=== PATIENT | male | born 1960 | race Caucasian/White ===

== ENCOUNTER 2024-01-24 17:04 | Emergency (ER) | payer OTHER, SELFPAY ==
[2024-01-24 17:17] VITALS: BP 153/84
[2024-01-24 17:49] LABS: % Basophils 0.6 % (0-2); % Immature Granulocytes 0.4 % (0-0.5); % Lymphocytes 21.6 % (20.5-51.1); % Monocytes 7.3 % (1.7-9.3); % Neutrophils 69.1 % (42.2-75.2); Absolute Eosinophils 0.1 10^3/uL (0-0.7); Absolute Lymphocytes 1.5 10^3/uL (1.2-3.4); Absolute Monocytes 0.5 10^3/uL (0.1-0.6); Absolute Neutrophils 4.7 10^3/uL (1.4-6.5); Hematocrit 41.5 % (39.0-52.0); Hemoglobin 14.1 g/dL (13.0-18.0); Mean Corpuscular Hgb 29.6 pg (27.0-31.0); Nucleated Red Blood Cells % 0 % (-); Platelet Count 205 10^3/uL (130-400); Red Blood Cell Count 4.77 10^6/uL (4.70-6.10); Red Cell Dist. Width 13.5 % (11.5-14.5); White Blood Cell Count 6.9 10^3/uL (4.8-10.8)
[2024-01-24 18:01] LABS: ALT (SGPT) 26 U/L (0-50); AST (SGOT) 36 U/L (17-59); Albumin 4.9 g/dl (3.5-5.0); Alkaline Phosphatase 58 U/L (38-126); Blood Urea Nitrogen 13 mg/dl (9-20); Calcium 9.8 mg/dl (8.4-10.2); Carbon Dioxide 25 mmol/L (22-30); Chloride 100 mmol/L (98-107); Glucose 76 mg/dl (70-99); Potassium 4.3 mmol/L (3.5-5.1); Sodium 138 mmol/L (135-145); Total Bilirubin 1.3 mg/dl (0.2-1.3); Total Protein 6.9 g/dl (6.3-8.2); eGFR > 60.00
--- NOTE | 2024-01-24 18:48 | ED.GENMED ---
History of Present Illness
General
Chief Complaint: Anxiety
Source: patient
Exam Limitations: none
Time Seen by Provider: 01/24/24 18:35
Nursing documentation reviewed up to this point in time: agreed with
History of Present Illness
History of Present Illness:
63-year-old male presents to the ER for evaluation. Patient reports he was sitting at home and suddenly' my whole body went numb.' He complains of numbness to his entire face both his arms both of his legs. He felt this he was having difficulty
speaking. He reports' I was afraid I was having a heart attack.' He denied any chest pain or shortness of breath. He denies any upper /lower extremity weakness.
He reports he has no past medical history. He drove himself to the ER.
Past History
Past History
ED Past Medical History: HTN
ED Past Surgical History: None
Social History
Tobacco: Former smoker
Alcohol: None
Personal:
Living: with family
Review of Systems
Review of Systems
Allergies reviewed?: Yes
All Other Systems: ROS reviewed and negative except as documented in HPI and ROS
Constitutional: Reports no symptoms
Respiratory: Denies trouble breathing
Cardiac: Reports no symptoms
ABD/GI: Reports no symptoms
: Reports no symptoms
Musculoskeletal: Reports no symptoms
Skin: Reports no symptoms
Neurological: Reports numbness and other ('numb all over my body ' denies arm/leg weakness denies headache ); Denies dizzy, headache or weakness
Endocrine: Reports no symptoms
Psychiatric: Reports no symptoms
Phy Exam
General Physical Exam
General Presentation: no apparent distress
General age: appears stated age
General Skin: warm and dry
General Habitus: normal
General Mental: anxious
Cardiovascular Exam
Cardiovascular Exam: regular rate/rhythm, no murmur and normal peripheral pulses
Pulmonary Exam
Pulmonary Exam: lungs clear and no respiratory distress
Neurological Exam
Neurological Exam: alert and oriented x3
Musculoskeletal Exam
Musculoskeletal Exam: full ROM and other (Strong bilateral distal pulses in upper and lower extremties)
Skin Exam
Skin Exam: normal color and warm/dry
Psychiatric Exam
Psychiatric Exam: normal mood/affect
Course
Orders/Labs/Results
Orders:
Orders
01/24/24 17:06
Electrocardiogram (*1) Urgent
Reason for Study: Palpitations
01/24/24 17:07
EKG- Treatment ONCE
01/24/24 17:32
EKG- Treatment ONCE
01/24/24 17:38
CBC/With Diff [Complete Blood Count/With Diff] Urgent
Comprehensive Metabolic Panel Urgent
01/24/24 19:04
CT Head W/o Iv Contrast Urgent
Comment:
Reason For Exam: confusion
01/24/24 20:22
Vital Signs- Treatment ONCE
Frequency: Once
Abnormal Lab Results
01/24/24
17:38
MPV 11.0 H fL
(7.4-10.4)
01/24/24 17:38
01/24/24 17:38
Vital Signs
Initial and Last Documented VS:
Initial Vital Signs
Temp Pulse Resp BP Pulse Ox
98.2 F 73 16 153/84 100
01/24/24 17:17 01/24/24 17:17 01/24/24 17:17 01/24/24 17:17 01/24/24 17:17
Last Documented Vital Signs
Temp Pulse Resp BP Pulse Ox
98.2 F 61 16 131/61 98
01/24/24 17:17 01/24/24 20:51 01/24/24 20:51 01/24/24 20:51 01/24/24 20:51
Authorization Rep consulted with Physician
Authorization Rep consulted with physician?: Yes
Name of Physician Consulted: Elise
MDM/Problems Addressed
MDM/Problems Addressed:
Patient is a 63-year-old male who presents to the ER for evaluation. He complains of sudden episode of numbness throughout his entire body and he felt that he was having difficulty getting his words out. He denied any actual weakness in upper or
lower extremities. He denies any headache. He thought he was' having a heart attack.' Patient presents to the ER awake alert he is very anxious and odd affect. He has a normal neurological exam. He denies any chest pain denies any shortness of
breath. He was minimally hypertensive on arrival however sinus rhythm no acute distress no recent illness fever chills he is afebrile not hypoxic labs unremarkable. Patient had no complaints of chest pain no cardiac history cardiac troponin not
done no acute findings on EKG. Pt was evaluated by DR Murphy, no focal neuro deficits. no acute findings on EKG. no complaints of chest pain/shortness of breath. No cardiac history. He does have a history of high blood pressure and is
on blood pressure medication. He was seen here in 2019 with similar symptoms of numbness and tingling and had' foggy head.' He Similar complaints of the numbness and tingling more through his entire face and entire body involving both of his arms
and legs which is consistent with today's complaint. Again during previous visit it was documented the patient was worried about having a stroke or heart attack. When I asked patient about this he tells me that he has had this 'numbness since
then.' He did not address this with his family doctor
Will check CAT scan however no concerning findings.
Patient presents with symptoms likely caused by anxiety. He has no acute distress
*Radiology
Radiology exam reviewed: radiology read reviewed
*Pulse Oximetry
Patient hypoxic: no
*EKG
Interpreted by ED Provider?: Yes
Heart Rate: 68
Rate: normal
Rhythm: sinus
Ischemia: no ischemia
*Critical Care Note
Total Time (30-74mins, 75-104mins- exclusive of procedures): Not Applicable
ED Attending Note
-
Portions of this chart may have been created with voice recognition software.� Occasional wrong word or��sound alike� substitutions may have occurred due to the inherent limitations of voice recognition software.
Discharge Plan
Departure
Patient Disposition: Home (Routine Discharge)
Date of Disposition: 01/24/24
Time of Disposition: 20:38
Patient with high blood pressure during this ER visit?: Yes
Condition: Fair
Covid-19: Not Applicable
Discharge Problem:
Paresthesia
Instructions: Paresthesia (DC), BLOOD PRESSURE
Prescriptions:
No Action
multivitamin [Daily Multiple] 1 EACH tablet
1 ea PO DAILY
lisinopril 20 MG tablet
20 mg PO DAILY
amlodipine 5 MG tablet
5 mg PO DAILY
aspirin 81 MG tablet,delayed release (DR/EC)
81 mg PO DAILY
Referrals:
Ivan Frausto MD [Primary Care Provider] -
Activity Restrictions/Additional Instructions:
Please follow-up with your family doctor next of days for reevaluation of your symptoms. it is possible this is anxiety. There are no acute findings during your workup here in the ER.
Interventions
Interventions:
*Risk Screen - Suicide Last Done: 01/24/24 17:17
*General Assessment Last Done: 01/24/24 17:17
*Neglect/Abuse Screening Last Done: 01/24/24 17:17
ED- Fall Risk Assessment Last Done: 01/24/24 20:15
*ED COVID-19 Vaccine History Last Done: 01/24/24 21:12
*Nursing Disposition Last Done: 01/24/24 21:12
ED-Psychological Assessment Last Done: 01/24/24 20:15
Discharge Date and Time
Discharge Date/Time: 01/24/24 21:12
Print Language: [id number]
[2024-01-24 20:51] VITALS: BP 131/61
== END 2024-01-24 21:12 | disposition home or self-care (01) ==
LOC: EMR 17:04
PROVIDERS: EMERGENCY PHYSICIAN Emergency Medicine; FAMILY PHYSICIAN Student in an Organized Health Care Education/Training Program; PRIMARYCARE PHYSICIAN Internal Medicine
DX: R20.2 Paresthesia of skin (principal); F41.9 Anxiety disorder, unspecified; I10 Essential (primary) hypertension; Z87.891 Personal history of nicotine dependence
CPT/HCPCS: 99284; 70450; 80053; 85025; 93005

== ENCOUNTER → 2024-02-24 10:10 | Outpatient (REF) | payer OTHER, SELFPAY | LOC: HWRAD 10:10 | PROVIDERS: ATTENDING PHYSICIAN Student in an Organized Health Care Education/Training Program | DX: Z87.891 Personal history of nicotine dependence (principal) | CPT/HCPCS: 71271 ==

== ENCOUNTER → 2024-03-02 10:45 | Outpatient (REF) | payer OTHER, SELFPAY | LOC: RAD 10:45 | PROVIDERS: ATTENDING PHYSICIAN Student in an Organized Health Care Education/Training Program | DX: G62.9 Polyneuropathy, unspecified (principal) | CPT/HCPCS: 93922; 93925 ==

== ENCOUNTER → 2025-02-04 11:05 | Outpatient (REF) | payer OTHER, SELFPAY | LOC: RAD 11:05 | PROVIDERS: ATTENDING PHYSICIAN Student in an Organized Health Care Education/Training Program | DX: K59.09 Other constipation (principal) | CPT/HCPCS: 74018 ==